=== PATIENT | female | born 2000 | race Caucasian/White ===

== ENCOUNTER 2023-09-03 23:58 | Emergency (ER) | payer OTHER, SELFPAY ==
[2023-09-04 00:10] VITALS: BP 116/77
[2023-09-04 00:51] LABS: COVID-19 Antigen Negative (Negative)
[2023-09-04 01:02] VITALS: BMI 22.2
[2023-09-04] MEDS: NSS 1000 IV (01:03)
[2023-09-04 01:09] LABS: % Basophils 0.5 % (0-2); % Eosinophils 0.6 % (0-6); % Immature Granulocytes 0.5 % (0-0.5); % Monocytes 12.8 % (1.7-9.3); % Neutrophils 76.6 % (42.2-75.2); Absolute Eosinophils 0.1 10^3/uL (0-0.7); Absolute Lymphocytes 0.7 10^3/uL (1.2-3.4); Absolute Neutrophils 6.2 10^3/uL (1.4-6.5); Hematocrit 32.5 % (37.0-47.0); Hemoglobin 11.1 g/dL (12.0-16.0); Mean Corp Hgb Conc. 34.2 g/dL (33.0-37.0); Mean Corpuscular Hgb 22.2 pg (27.0-31.0); Mean Corpuscular Volume 64.9 fL (81.0-99.0); Mean Platelet Volume 9.3 fL (7.4-10.4); Nucleated Red Blood Cells % 0 %; Platelet Count 262 10^3/uL (130-400); Red Blood Cell Count 5.01 10^6/uL (4.20-5.40); Red Cell Dist. Width 18.1 % (11.5-14.5); White Blood Cell Count 8.1 10^3/uL (4.8-10.8)
[2023-09-04] MEDS: ZOFRAN 4 MG IV ×2 (01:13→02:11)
[2023-09-04 01:16] VITALS: BP 104/58
[2023-09-04 01:19] LABS: HCG, Serum Qualitative Screen Negative
[2023-09-04 01:22] LABS: ALT (SGPT) 13 U/L (0-35); AST (SGOT) 22 U/L (14-36); Albumin 4.5 g/dl (3.5-5.0); Alkaline Phosphatase 71 U/L (38-126); Blood Urea Nitrogen 10 mg/dl (7-17); Calcium 9.6 mg/dl (8.4-10.2); Carbon Dioxide 20 mmol/L (22-30); Chloride 106 mmol/L (98-107); Estimated Creatinine Clearance 96 ml/min; Glucose 84 mg/dl (70-99); Sodium 135 mmol/L (135-145); Total Bilirubin 0.7 mg/dl (0.2-1.3); Total Protein 7.6 g/dl (6.3-8.2); eGFR > 60.00
[2023-09-04] MEDS: MOTRIN PO ×2 (01:24→01:54)
--- NOTE | 2023-09-04 01:53 | ED.GENMED ---
History of Present Illness
General
Chief Complaint: Abdominal Symptoms
Source: patient
Exam Limitations: none
Time Seen by Provider: 09/04/23 00:25
Travel History
Have you had any contact with someone who has COVID-19?: No
Do you have any symptoms of coronavirus? Fever > 100 degrees, chills, cough, shortness of breath, sore throat, loss of taste or smell, muscle aches, or headache?: No
History of Present Illness
History of Present Illness:
23-year-old female who presents with persistent nausea and vomiting. Patient states she started with a sore throat fever on . Since she has had nausea and vomiting. Patient currently reports on my exam no nausea and her throat is better.
She denies any obvious sick contacts. No abdominal pain. Denies dysuria. No hematuria. No back pain.
Past History
Past History
ED Past Medical History: Asthma and Other (Anemia)
Phy Exam
Physical Exam
Physical Exam:
CONSTITUTIONAL Patient alert and oriented to person, place and time. Well-appearing. Vital signs reviewed.
HEAD atraumatic, normocephalic.
EYES eyelids normal to inspection, Extraocular muscles intact, Conjunctiva normal, Sclera normal.
NECK normal range of motion, Trachea midline, no jugular venous distention.
ENT no asymmetry, no exudates, no redness, no stridor
RESPIRATORY CHEST No respiratory distress noted, Chest expansion equal, Bilateral breath sounds clear.
CARDIOVASCULAR regular rate and rhythm, Heart sounds normal.
ABDOMEN mild diffuse, Bowel sounds normal. No distention.
BACK normal inspection, no obvious deformities
UPPER EXTREMITY range of motion normal, Motor strength normal, no cyanosis, no edema.
LOWER EXTREMITY range of motion normal, Motor strength normal, no cyanosis, no edema.
NEURO Speech normal, No focal motor deficits, Calhoun coma scale 15, Memory normal, Cranial Nerves intact to screening exam.
SKIN skin warm, dry, and normal in color.
PSYCHIATRIC patient oriented to person place and time, Normal affect.
Course
Orders/Labs/Results
Orders:
Orders
09/04/23 00:30
COVID-19 Antigen Urgent
Source: Nasal Swab
Influenza A+B Rapid Molecular Stat
KAYLA Source: Nasal Swab
Specimen Description:
09/04/23 00:47
0.9% Sodium Chloride 1000 ml [Nss] 1,000 ml IV BOLUS
Ibuprofen [Motrin] 600 mg PO NOW STA
09/04/23 00:48
Test Result ONCE
09/04/23 01:04
Complete Blood Count/With Diff Urgent
Comprehensive Metabolic Panel Urgent
HCG, Serum Qualitative Screen Stat
09/04/23 01:05
Ondansetron Injectable [Zofran] 4 mg .ROUTE .STK-MED ONE
09/04/23 01:11
Ondansetron Injectable [Zofran] 4 mg IV NOW STA
09/04/23 02:00
Urinalysis Reflex To Culture Urgent
Date Specimen was Collected: 09/04/23
Time Specimen was Collected: 01:56
Urine Microscopic Reflex Cult Urgent
Rapid Strep Group A Urgent
KAYLA Source: Throat/Pharynx
Specimen Description:
Date Specimen was Collected: 09/04/23
Time Specimen was Collected: 01:56
Throat Culture [Throat Culture, Comprehensive] Urgent
KAYLA Source: Throat/Pharynx
Specimen Description:
Date Specimen was Collected: 09/04/23
Time Specimen was Collected: 01:56
Urine Culture Urgent
KAYLA Source: U
Specimen Description:
Date Specimen was Collected: 09/04/23
Time Specimen was Collected: 01:56
09/04/23 02:06
Ondansetron Injectable [Zofran] 4 mg IV NOW STA
Abnormal Lab Results
09/04/23 09/04/23
01:04 02:00
Hgb 11.1 L g/dL
(12.0-16.0)
Hct 32.5 L %
(37.0-47.0)
MCV 64.9 L fL
(81.0-99.0)
MCH 22.2 L pg
(27.0-31.0)
RDW 18.1 H %
(11.5-14.5)
Absolute Lymphs (auto) 0.7 L 10^3/uL
(1.2-3.4)
Absolute Monos (auto) 1.0 H 10^3/uL
(0.1-0.6)
Neutrophils % 76.6 H %
(42.2-75.2)
Lymphocytes % 9.0 L %
(20.5-51.1)
Monocytes % 12.8 H %
(1.7-9.3)
Carbon Dioxide 20 L mmol/L
(22-30)
Urine Ketones 2+ A
(Negative)
Urine Urobilinogen 2+ A
(Neg - 1+)
Leukocyte Esterase Rfl 1+ A
(Negative)
Urine RBC 3-6 A /HPF
(0-2)
Urine WBC (Reflex) 11-15 A /HPF
(0-5)
Urine Bacteria (Reflex) Many A
(Negative)
09/04/23 01:04
09/04/23 01:04
Vital Signs
Initial and Last Documented VS:
Initial Vital Signs
Temp Pulse Resp BP Pulse Ox
101.0 F H 118 18 116/77 100
09/04/23 00:10 09/04/23 00:10 09/04/23 00:10 09/04/23 00:10 09/04/23 00:10
Last Documented Vital Signs
Temp Pulse Resp BP Pulse Ox
101.5 F H 96 16 106/64 99
09/04/23 02:03 09/04/23 02:15 09/04/23 02:15 09/04/23 02:15 09/04/23 02:15
MDM/Problems Addressed
MDM/Problems Addressed:
Gastroenteritis, viral syndrome
*Pulse Oximetry
Patient hypoxic: no
*Critical Care Note
Total Time (30-74mins, 75-104mins- exclusive of procedures): Not Applicable
Data Reviewed
Source: patient
Further Testing Considered But Not Given:
Consider CT of the abdomen benign soft do not suspect other intra-abdominal emergency
Patient Management
Escalation/DeEscalation of care consider admission/obs:
Mild improvement. Friend also sick. Recommended Tylenol and fever control. Antiemetics as needed. Given urine findings, cover with Bactrim
ED Attending Note
-
Portions of this chart may have been created with voice recognition software.� Occasional wrong word or��sound alike� substitutions may have occurred due to the inherent limitations of voice recognition software.
Discharge Plan
Departure
Patient Disposition: Home (Routine Discharge)
Date of Disposition: 09/04/23
Time of Disposition: 03:02
Patient with high blood pressure during this ER visit?: No
Discharge Problem:
Vomiting, Fever, BACTERURIA
Instructions: Clear Liquid Diet, Nausea and Vomiting, Adult (DC)
Prescriptions:
New
sulfamethoxazole-trimethoprim [Bactrim DS] 800-160 mg tablet
1 tab PO BID Qty: 10 0RF
ondansetron 4 mg tablet,disintegrating
4 mg PO QID PRN (Reason: nausea and vomiting) Qty: 10 0RF
No Action
pantoprazole [Protonix] 40 mg tablet,delayed release (DR/EC)
40 mg PO DAILY Qty: 30 0RF
Rx Instructions:
Please take 30 minutes prior to eating or drinking anything in the morning.
Linzess 145 mcg Capsule
145 mcg PO DAILY
Referrals:
PRIVATE,PHYSICIAN [Family Provider] -
Activity Restrictions/Additional Instructions:
Use Tylenol and ibuprofen for fever control. Return immediately for intractable vomiting, abdominal pain, worsening symptoms or any other concerns. Please see your doctor in follow-up in the next 3 to 5 days.
Interventions
Interventions:
*Risk Screen - Suicide Last Done: 09/04/23 00:12
*General Assessment Last Done: 09/04/23 00:12
*Neglect/Abuse Screening Last Done: 09/04/23 00:12
VZ-Ffvjdz-Narqppwakw Assessment Last Done: 09/04/23 00:31
ED- Neurological Assessment Last Done: 09/04/23 00:31
ED-Skin Assessment Last Done: 09/04/23 00:31
[2023-09-04 02:15] VITALS: BP 106/64
[2023-09-04 02:18] LABS: Urine Albumin Negative (Neg - Trace); Urine Bilirubin Negative (Negative); Urine Character Clear (Clear); Urine Color Yellow; Urine Glucose Negative (Negative); Urine Ketone 2+ (Negative); Urine Leukocyte 1+ (Negative); Urine Nitrite Negative (Negative); Urine Occult Blood Negative (Negative); Urine Urobilinogen 2+ (Neg - 1+)
[2023-09-04 02:33] LABS: Urine Squamous Cell >30 /LPF (Few)
[2023-09-04 02:34] LABS: Urine Bacteria Many (Negative); Urine Mucus Moderate
[2023-09-04] MEDS: MOTRIN 600 MG PO (02:43)
== END 2023-09-04 03:30 | disposition home or self-care (01) ==
LOC: EMR 23:58
PROVIDERS: EMERGENCY PHYSICIAN Emergency Medicine
DX: R11.2 Nausea with vomiting, unspecified (principal); R50.9 Fever, unspecified; R82.71 Bacteriuria
CPT/HCPCS: 99284; 96374; 96376 ×2; 80053; 81003; 81015; 84703; 85025; 87070; 87086; 87502; 87811; 87880